=== PATIENT | female | born 1980 | race Asian ===

== ENCOUNTER 2018-04-15 14:30 | Emergency (ER) | payer BC, OTHER ==
--- NOTE | 2018-04-15 14:33 | PDOC ---
History of Present Illness - General History Source: Patient Exam Limitations: No Limitations - History of Present Illness Initial Comments: 04/15/18 16:11 The patient is a 37 year old female with no significant PMH who presents to the emergency department with 3 days of chest discomfort. The patient reports that her chest discomfort is mainly right sided. She states that today her chest discomfort has been constant. The patient states that when she was feeling her chest discomfort for the past day she was at home doing regularly chores around the house. The patient states that she also returned o the gym recently. She denies any rigorous activity. The patient reports that she took a 200mg motrin prior to arrival at the ED. The patient denies any shortness of breath, cough, sick contact, runny dose, the patient denies any leg swelling, tenderness or recent travel. The patient denies any headache,dizziness,fever, chills, nausea, vomit, diarrhea, constipation or urinary symptoms. The patient denies any other complaints. The patient reports a family history of heart problems (father of heart disease at age 49, mother had a stroke 10 years ago.) Allergies: NKDA PCP: Dr. Raphael <Nena Rain - Last Filed: 04/15/18 16:11> <Consuelo Gonzalez - Last Filed: 04/15/18 16:30> - General Chief Complaint: Chest Pain Stated Complaint: CHEST DISCOMFORT Time Seen by Provider: 04/15/18 14:33 Past History <Nena Rain - Last Filed: 04/15/18 16:11> - Past Medical History Asthma: No Cancer: No Cardiac Disorders: No Diabetes: No HTN: No Seizures: No Thyroid Disease: No - Suicide/Smoking/Psychosocial Hx Smoking History: Never smoked Have you smoked in the past 12 months: No Hx Alcohol Use: No Drug/Substance Use Hx: No Hx Substance Use Treatment: No <Consuelo Gonzalez - Last Filed: 04/15/18 16:30> - Past Medical History Allergies/Adverse Reactions: Allergies Allergy/AdvReac Type Severity Reaction Status Date / Time No Known Drug Allergies Allergy Verified 04/15/18 14:31 Home Medications: Ambulatory Orders NK [No Known Home Medication] 04/15/18 Review of Systems - Review of Systems Able to Perform ROS?: Yes Comments:: 04/15/18 16:11 GENERAL/CONSTITUTIONAL: No fever or chills. No weakness. HEAD, EYES, EARS, NOSE AND THROAT: No change in vision. No ear pain or discharge. No sore throat. CARDIOVASCULAR: (+)chest pain. No shortness of breath. RESPIRATORY: No cough, wheezing, or hemoptysis. GASTROINTESTINAL: No nausea, vomiting, diarrhea or constipation. GENITOURINARY: No dysuria, frequency, or change in urination. MUSCULOSKELETAL: No joint or muscle swelling or pain. No neck or back pain. SKIN: No rash NEUROLOGIC: No headache, vertigo, loss of consciousness, or change in strength/ sensation. ENDOCRINE: No increased thirst. No abnormal weight change. HEMATOLOGIC/LYMPHATIC: No anemia, easy bleeding, or history of blood clots. ALLERGIC/IMMUNOLOGIC: No hives or skin allergy. <Nena Rain - Last Filed: 04/15/18 16:11> *Physical Exam - Vital Signs Last Vital Signs Temp Pulse Resp BP Pulse Ox 98.8 F 62 18 153/71 100 04/15/18 14:30 04/15/18 14:30 04/15/18 14:30 04/15/18 14:30 04/15/18 14:30 - Physical Exam Comments: 04/15/18 16:12 GENERAL: Awake, alert, and fully oriented, in no acute distress HEAD: No signs of trauma EYES: PERRLA, EOMI, sclera anicteric, conjunctiva clear ENT: Auricles normal inspection, hearing grossly normal, nares patent, oropharynx clear without exudates. Moist mucosa NECK: Normal ROM, supple, no lymphadenopathy, JVD, or masses LUNGS: Breath sounds equal, clear to auscultation bilaterally. No wheezes, and no crackles HEART: Regular rate and rhythm, normal S1 and S2, no murmurs, rubs or gallops ABDOMEN: Soft, nontender, normoactive bowel sounds. No guarding, no rebound. No masses EXTREMITIES: Normal range of motion, no edema. No clubbing or cyanosis. No cords, erythema, or tenderness NEUROLOGICAL: Cranial nerves II through XII grossly intact. Normal speech, normal gait SKIN: Warm, Dry, normal turgor, no rashes or lesions noted. <Nena Rain - Last Filed: 04/15/18 16:11> Heart Score/ECG Review - ECG Intrepretation Comment:: 04/15/18 15:09 sinus minerva at 58, nl axis, nl interval, t wave inversions III which are nonspecific, no acute st/t wave findings <Consuelo Gonzalez - Last Filed: 04/15/18 16:30> ED Treatment Course - LABORATORY CBC & Chemistry Diagram: 04/15/18 15:00 04/15/18 15:00 - ADDITIONAL ORDERS Additional order review: Laboratory Results 04/15/18 04/15/18 15:00 15:00 Sodium 133 L Potassium 3.8 Chloride 103 Carbon Dioxide 25 Anion Gap 5 L BUN 14 Creatinine 0.7 Creat Clearance w eGFR > 60 Random Glucose 108 H Calcium 8.8 Total Bilirubin 0.5 AST 21 ALT 19 Alkaline Phosphatase 32 Creatine Kinase 132 Troponin I < 0.03 Total Protein 7.1 Albumin 4.2 04/15/18 15:00 RBC 4.34 MCV 87.0 MCHC 34.1 RDW 13.0 MPV 8.9 Neutrophils % 62.0 Lymphocytes % 28.1 Monocytes % 6.2 Eosinophils % 2.7 Basophils % 1.0 <Nena Rain - Last Filed: 04/15/18 16:11> - LABORATORY CBC & Chemistry Diagram: 04/15/18 15:00 04/15/18 15:00 <Consuelo Gonzalez - Last Filed: 04/15/18 16:30> Medical Decision Making - Medical Decision Making 04/15/18 15:07 a/p: 37yo female with borderline HLD with L sided cp that radiates to axilla -constant x 3 days -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 04/15/18 16:28 pt states pain is better discussed labs and imaging results with the patient discussed need for follow up this week with Dr. raphael answered all questions. <Consuelo Gonzalez - Last Filed: 04/15/18 16:30> *DC/Admit/Observation/Transfer - Attestations Scribe Attestion: 04/15/18 16:12 Documentation prepared by Nena Rain, acting as phlebotomist medical lab assistant for Consuelo Gonzalez MD. <Nena Rain - Last Filed: 04/15/18 16:11> - Discharge Dispostion Decision to Admit order: No - Attestations Physician Attestion: 04/15/18 16:30 I, Dr. Consuelo Gonzalez, DO, attest that this document has been prepared under my direction and personally reviewed by me in its entirety. I further attest, that it accurately reflects all work, treatment, procedures and medical decision -making performed by me. <Consuelo Gonzalez - Last Filed: 04/15/18 16:30> Diagnosis at time of Disposition: Atypical chest pain - Discharge Dispostion Disposition: HOME Condition at time of disposition: Stable - Referrals Referrals: Joseph Raphael MD [Primary Care Provider] - - Patient Instructions Printed Discharge Instructions: DI for Atypical Chest Pain Additional Instructions: Please make an appointment to see Dr. Raphael this week. Please return to the ED with any worsening of symptoms or further concerns. Please take motrin as needed for the pain. - Post Discharge Activity
[2018-04-15 14:36] VITALS: TEMP 98.8; BMI 25.6
[2018-04-15 15:15] LABS: EOS % 2.7 % (0-4.5); HEMATOCRIT 37.8 % (32.4-45.2); HEMOGLOBIN 12.9 GM/dl (10.7-15.3); LYMPH % 28.1 % (8-40); MCH 29.6 pg (25.7-33.7); MCHC 34.1 g/dl (32.0-36.0); MEAN PLT VOLUME 8.9 fl (7.5-11.1); MONO % 6.2 % (3.8-10.2); PLATELET COUNT 231 K/MM3 (134-434); RBC 4.34 M/mm3 (3.60-5.2)
[2018-04-15 15:26] LABS: ALBUMIN 4.2 g/dl (3.5-5.0); ALK PHOS 32 U/L (32-92); ANION GAP 5 (8-16); BILIRUBIN,TOTAL 0.5 mg/dl (0.2-1.0); BLOOD UREA NITROGEN 14 mg/dl (7-18); CALCIUM 8.8 mg/dl (8.4-10.2); CHLORIDE 103 mmol/L (98-107); CO2 25 mmol/L (22-28); CREATININE 0.7 mg/dl (0.6-1.3); GLUCOSE,RANDOM 108 mg/dl (74-106); POTASSIUM 3.8 mmol/L (3.5-5.1); SGOT/AST 21 U/L (10-42); SGPT/ALT 19 U/L (10-40); SODIUM 133 mmol/L (136-145); TOT PROT 7.1 g/dl (6.4-8.3)
[2018-04-15] MEDS ORDERED: IBUPROFEN 400 MG TABLET (FP) PO ONE ×2 (16:10→16:22)
[2018-04-15 16:43] VITALS: BP 131/94; PULSE 56
--- NOTE | 2018-04-15 20:44 | EKG ---
Test Reason : Blood Pressure : / mmHG Vent. Rate : 058 BPM Atrial Rate : 058 BPM P-R Int : 146 ms QRS Dur : 080 ms QT Int : 446 ms P-R-T Axes : 039 043 018 degrees QTc Int : 437 ms SINUS BRADYCARDIA OTHERWISE NORMAL ECG WHEN COMPARED WITH ECG OF 23-NOV-2004 13:13, NO SIGNIFICANT CHANGE WAS FOUND Confirmed by DANAY MENDIETA MD ([id number]) on 04/15/2018 8:44:18 PM Referred By: ULISES LIN Confirmed By:DANAY MENDIETA MD
== END 2018-04-15 16:35 | disposition home or self-care (01) ==
LOC: FER 14:30
DX: R07.89 Other chest pain (principal)
CPT/HCPCS: 36415; 71046-TC-FY; 80053; 82550; 84484; 85025; 93005; 99285-25